=== PATIENT | male | born 1945 | race American Indian/Alaskan Native ===

== ENCOUNTER 2016-09-22 18:43 | Emergency (ER) | payer MEDICARE, OTHER ==
[2016-09-22 19:52] LABS: Hematocrit 40.9 % (35.5-45.6); Hemoglobin 13.7 gm/dl (11.8-15.2); Mean Corpuscular HGB Conc 34 % (32-34); Mean Corpuscular Hemoglobin 29 pg (28-32); Mean Corpuscular Volume 86 fl (84-94); Platelet Count 170 K/mm3 (140-440); Red Blood Count 4.78 M/mm3 (3.65-5.03); Red Cell Distribution Width 18.2 % (13.2-15.2); White Blood Count 9.5 K/mm3 (4.5-11.0)
[2016-09-22 20:01] LABS: Anion Gap 19 mmol/L; BUN/Creatinine Ratio 24.28; Blood Urea Nitrogen 17 mg/dL (9-20); Calcium 9.4 mg/dL (8.4-10.2); Carbon Dioxide 25 mmol/L (22-30); Chloride 100.8 mmol/L (98-107); Glucose 108 mg/dL (75-100); Sodium 141 mmol/L (137-145)
[2016-09-22] MEDS: APRESOLINE IV ONE (20:05)
--- NOTE | 2016-09-22 20:11 | Emergency Department Report ---
ED General Adult HPI - General Chief complaint: High BP Stated complaint: HBP Time Seen by Provider: 09/22/16 19:36 Source: patient, RN notes reviewed Mode of arrival: Ambulatory Limitations: No Limitations - History of Present Illness Initial comments: 71-year-old male presents to the emergency department for evaluation of elevated blood pressure. Patient states that he noticed his blood pressure was elevated at home earlier today. He reports he has been taking his indication as prescribed. Blood pressure home was in the 170s systolic and 100 diastolic. Patient reports that he did have some mild indigestion at approximately noon today, but this spontaneously resolved. He denies shortness of breath, dizziness, diaphoresis, nausea, vomiting, vision changes, or headache. There are no other complaints. -: Gradual, This morning Severity scale (0 -10): 0 Improves with: none Worsens with: none Associated Symptoms: denies other symptoms Treatments Prior to Arrival: none - Related Data Home Medications Medication Instructions Recorded Confirmed Last Taken Aspirin 81 mg PO 4XD 09/22/16 09/22/16 09/22/16 Dutasteride [Avodart] 1 tab PO DAILY 09/22/16 09/22/16 09/22/16 Fexofenadine (Nf) 180 mg PO HS 09/22/16 09/22/16 Unknown Melatonin [Melatin] 3 mg PO DAILY 09/22/16 09/22/16 Unknown Metformin HCl [Glucophage] 500 mg PO BID 09/22/16 09/22/16 09/22/16 Omeprazole 20 mg PO DAILY 09/22/16 09/22/16 09/22/16 Pravastatin Sodium [Pravastatin] 40 mg PO QHS 09/22/16 09/22/16 09/21/16 Tamsulosin [Flomax] 1 tab PO DAILY 09/22/16 09/22/16 09/22/16 Valsartan 40 mg PO DAILY 09/22/16 09/22/16 09/22/16 methOCARBAMOL [Robaxin TAB] 500 mg PO Q8H PRN 09/22/16 09/22/16 Unknown Previous Rx's Medication Instructions Recorded Last Taken Type Hydrochlorothiazide [HCTZ] 25 mg PO QDAY #30 tablet 09/22/16 Unknown Rx Allergies Allergy/AdvReac Type Severity Reaction Status Date / Time No Known Allergies Allergy Unverified 09/22/16 18:49 ED Review of Systems ROS: Stated complaint: HBP Other details as noted in HPI Comment: All other systems reviewed and negative Constitutional: see HPI Gastrointestinal: as per HPI. denies: nausea, vomiting ED Past Medical Hx - Past Medical History Previous Medical History?: Yes Hx Hypertension: Yes Hx Diabetes: Yes Hx GERD: Yes Additional medical history: High cholesterol, BPH - Surgical History Past Surgical History?: Yes Hx Cholecystectomy: Yes - Family History Family history: no significant - Social History Smoking Status: Never Smoker Substance Use Type: Alcohol, Prescribed - Medications Home Medications: Home Medications Medication Instructions Recorded Confirmed Last Taken Type Aspirin 81 mg PO 4XD 09/22/16 09/22/16 09/22/16 History Dutasteride [Avodart] 1 tab PO DAILY 09/22/16 09/22/16 09/22/16 History Fexofenadine (Nf) 180 mg PO HS 09/22/16 09/22/16 Unknown History Hydrochlorothiazide [HCTZ] 25 mg PO QDAY #30 tablet 09/22/16 Unknown Rx Melatonin [Melatin] 3 mg PO DAILY 09/22/16 09/22/16 Unknown History Metformin HCl [Glucophage] 500 mg PO BID 09/22/16 09/22/16 09/22/16 History Omeprazole 20 mg PO DAILY 09/22/16 09/22/16 09/22/16 History Pravastatin Sodium [Pravastatin] 40 mg PO QHS 09/22/16 09/22/16 09/21/16 History Tamsulosin [Flomax] 1 tab PO DAILY 09/22/16 09/22/16 09/22/16 History Valsartan 40 mg PO DAILY 09/22/16 09/22/16 09/22/16 History methOCARBAMOL [Robaxin TAB] 500 mg PO Q8H PRN 09/22/16 09/22/16 Unknown History ED Physical Exam - General Limitations: No Limitations General appearance: alert, in no apparent distress - Head Head exam: Present: atraumatic, normocephalic - Eye Eye exam: Present: normal appearance, PERRL, EOMI - ENT ENT exam: Present: normal exam, normal orophraynx, mucous membranes moist - Neck Neck exam: Present: normal inspection, full ROM. Absent: tenderness - Respiratory Respiratory exam: Present: normal lung sounds bilaterally. Absent: respiratory distress - Cardiovascular Cardiovascular Exam: Present: regular rate, normal rhythm, normal heart sounds - GI/Abdominal GI/Abdominal exam: Present: soft, normal bowel sounds. Absent: distended, tenderness - Extremities Exam Extremities exam: Present: normal inspection, full ROM. Absent: tenderness - Back Exam Back exam: Present: normal inspection, full ROM. Absent: tenderness - Neurological Exam Neurological exam: Present: alert, oriented X3. Absent: motor sensory deficit - Skin Skin exam: Present: warm, dry, intact ED Course Vital Signs 09/22/16 09/22/16 09/22/16 18:59 19:12 19:19 Temperature 97.6 F 97.7 F Pulse Rate 69 76 65 Respiratory 18 18 18 Rate Blood Pressure 179/109 Blood Pressure 189/103 [Left] O2 Sat by Pulse 95 96 Oximetry 09/22/16 09/22/16 09/22/16 19:21 19:31 19:41 Temperature Pulse Rate 65 64 64 Respiratory 10 L 11 L 13 Rate Blood Pressure 189/103 189/103 Blood Pressure [Left] O2 Sat by Pulse 96 95 96 Oximetry 09/22/16 09/22/16 09/22/16 19:51 20:00 20:05 Temperature Pulse Rate 61 62 68 Respiratory 11 L 10 L Rate Blood Pressure 189/103 157/95 157/95 Blood Pressure [Left] O2 Sat by Pulse 96 94 Oximetry 09/22/16 09/22/16 09/22/16 20:10 20:21 20:31 Temperature Pulse Rate 70 76 73 Respiratory 16 22 15 Rate Blood Pressure 146/88 146/88 148/86 Blood Pressure [Left] O2 Sat by Pulse 96 96 97 Oximetry 09/22/16 20:41 Temperature Pulse Rate 85 Respiratory 16 Rate Blood Pressure 148/86 Blood Pressure [Left] O2 Sat by Pulse 96 Oximetry ED Medical Decision Making - Lab Data Result diagrams: 09/22/16 19:29 09/22/16 19:29 - EKG Data -: EKG Interpreted by Me EKG shows normal: sinus rhythm, axis, intervals, QRS complexes, ST-T waves Rate: normal - EKG Data When compared to previous EKG there are: previous EKG unavailable Interpretation: normal EKG - Radiology Data Radiology results: image reviewed interpreted by me: Chest x-ray shows no acute cardiopulmonary abnormality. - Medical Decision Making Lab and imaging results reviewed and discussed with the patient. Patient's blood pressure has improved with IV hydralazine. Patient's home hydrochlorothiazide dose will be doubled, up to 25 mg daily. Patient will be discharged home at this time. - Differential Diagnosis hypertension, medication noncompliance Critical care attestation.: If time is entered above; I have spent that time in minutes in the direct care of this critically ill patient, excluding procedure time. ED Disposition Clinical Impression: Essential hypertension Disposition: DISCHARGED TO HOME OR SELFCARE Is pt being admited?: No Condition: Stable Instructions: Hypertension (ED) Prescriptions: Hydrochlorothiazide [HCTZ] 25 mg PO QDAY #30 tablet Referrals: MELISSA SHARMA [Other] - 3-5 Days Time of Disposition: 21:34
[2016-09-22 20:53] LABS: Anisocytosis 1+; Blastocytes % (Manual) 0 %; Polychromasia Few
[2016-09-22 20:57] LABS: Diff Status Complete; Ovalocytes 1+; Platelet Estimate Consistent w Auto
--- NOTE | 2016-09-22 20:57 | XRay Report ---
FINAL REPORT EXAM: XR CHEST ROUTINE 2V HISTORY: Shortness of breath TECHNIQUE: PA and lateral views of the chest PRIORS: None. FINDINGS: Lines, tubes, and devices: N/A Lungs and pleura: Trachea is normal in position. Mild bibasilar linear atelectasis is present. There is no evidence for consolidation, pleural effusion, vascular congestion, or pneumothorax. Cardiomediastinal silhouette: Cardiac and mediastinal silhouettes are unremarkable. Other: Bony structures are intact. IMPRESSION: Mild bibasilar linear atelectasis.
[2016-09-22 21:52] VITALS: BP 146/84
== END 2016-09-22 22:02 | disposition home or self-care (01) ==
LOC: ED 18:43
DX: I10 Essential (primary) hypertension (principal); E11.9 Type 2 diabetes mellitus without complications; K21.9 Gastro-esophageal reflux disease without esophagitis; E78.00 Pure hypercholesterolemia, unspecified; Z90.49 Acquired absence of other specified parts of digestive tract; Z79.82 Long term (current) use of aspirin
CPT/HCPCS: 36415; 71020; 80048; 84484; 85007; 85025; 93005; 93010; 96374; 99284; J0360